=== PATIENT | female | born 1995 | race Hispanic/Latino ===

== ENCOUNTER 2016-08-26 17:15 | Inpatient (IN) | payer MEDICAID ==
[~2016-08-26] VITALS: Ht 127 cm; Wt 65.8 kg
[2016-08-26] MEDS ORDERED: Lactated Ringer's 1,000 ML IV PRN (17:36)
[2016-08-26] MEDS ORDERED: Penicillin G K Inj 5,000,000 UNITS in Dextrose 5% Minibag Plus 100 ML IV ONE (17:40)
[2016-08-26] MEDS ORDERED: Sodium Chloride LOK Flush 10 mL Syringe IVFLUSH PRN (17:40)
[2016-08-26] MEDS ORDERED: Ondansetron 2 mg/mL 2 mL Inj IVPUSH PRN (17:40)
[2016-08-26] MEDS ORDERED: Oxytocin 30 Units/500 mL LR 30 UNITS in IV Premix 1 EACH IV PRN ×2 (17:40→20:10)
[2016-08-26] MEDS ORDERED: Carboprost 250 mCg/mL Inj IM PRN (17:40)
[2016-08-26] MEDS ORDERED: Hemorrhage Kit, Post Partum XX ONE (17:40)
[2016-08-26] MEDS ORDERED: Oxytocin 10 Unit/mL Inj IM PRN (17:40)
[2016-08-26] MEDS ORDERED: Methylergonovine 0.2 mg/mL Inj IM PRN (17:40)
[2016-08-26] MEDS ORDERED: fentaNYL-PF 50 mCg/mL 2 mL Inj IVPUSH PRN (17:40)
[2016-08-26 18:00] LABS: Mean Corpuscular Hemoglobin 29.7 pg (27.0-35.0); Mean Corpuscular Volume 89.8 fL (81-100)
[2016-08-26] MEDS ORDERED: Lactated Ringer's 500 ML IV ONE (18:05)
[2016-08-26] MEDS ORDERED: Atropine 1 mg/10 mL (Code) Syringe IVPUSH PRN (18:05)
[2016-08-26] MEDS ORDERED: EPHEDrine Sulfate 50 mg/mL Inj IVPUSH PRN (18:05)
[2016-08-26] MEDS ORDERED: fentaNYL 2 mCg/mL-Bupiv 0.125% 100 ML EPIDURAL SCH (18:05)
--- NOTE | 2016-08-26 18:09 | PCM.HPANE ---
Patient Data Surgeon Admitting Provider:Janny Whiteside MD Attending Provider:Janny Whiteside MD Primary Care Physician:Janny Whiteside MD Other Provider:[facility] Reason for Visit Term Labor Check Ht/WT & BMI Body Mass Index Allergies Coded Allergies: No Known Drug Allergies (Unverified Allergy, Unknown, 08/25/16) Past Anesthesia History Anesthesia History: Denies:: Abnormal Airway, Difficult Intubation Diabetes History Hx Diabetes?: No Medications Hypertension Medication: No History History of ENT Problems?: No Hx of Heart Problems?: No Hx of Respiratory Problem?: No Hx Neurologic Problems?: No Hx of GI Problems?: No Hx of Problems?: No HX of Peritoneal Dialysis: No Female Hx: Positive for:: Currently Stop/Bang Treated for Sleep Apnea?: No Do You Have a CPAP Machine?: No SASHA Risk Assessment: Low Risk, <3 Yes Risk Assessment Category Category 1A: Patient has history of documented sleep apnea, and HAS NOT received any narcotic, sedative or anesthesia administration during this stay. Category 1B: Patient has history of documented sleep apnea, and HAS received any narcotic , sedative or anesthesia administration during this stay Category 2: Patient has SUSPECTED Obstructive Sleep Apnea, and HAS received any narcotic , sedative or anesthesia administration during this stay. Category 3: Patient has SUSPECTED Obstructive Sleep Apnea and HAS NOT received narcotic, sedative or anesthesia administration during this stay. Category 4: Outpatient in Procedural Areas with known sleep apnea or who screen positive for High Risk via the STOP/BANG questionnaire. Exam Exam General Appearance: Alert, Oriented X3, Cooperative, No Acute Distress HEENT/AIRWAY: MP 2 Lungs: Clear to Auscultation, Normal Air Movement Heart: Exam Unremarkable, Regular Rate/Rhythm, No Murmurs/Rubs/Gallops Meds/Labs/Diagnostics Labs Test 08/26/16 17:35 White Blood Count 10.8th/mm3 (3.8-10.1) Red Blood Count 4.21mil/mm3 (3.90-5.20) Hemoglobin 12.5g/dL (12.0-15.6) Hematocrit 37.8% (35.0-46.0) Mean Corpuscular Volume 89.8fL (81-100) Mean Corpuscular Hemoglobin 29.7pg (27.0-35.0) Mean Corpuscular Hemoglobin Concent 33.1% (32.0-37.0) Red Cell Distribution Width 13.6% (12.3-15.4) Platelet Count 138bil/L (150-400) Plan Impression Patient chart reviewed, patient interviewed and anesthestic plan with risks, benefits, and alternatives discussed, and informed consent obtained. ASA Physical Status: ASA1 Normal Healthy Anesthetic Plan: Epidural Bene/Risks/Altern/Consents: Yes HP Complete Prior to Induction: Yes Catrachito Puente MD Aug 26, 2016 18:09
[2016-08-26] MEDS: Lactated Ringer's 1,000 ML IV SCH (20:01)
[2016-08-26] MEDS: Penicillin G K Inj 3,000,000 UNITS in IV Premix 1 EACH IV SCH (21:44)
--- NOTE | 2016-08-27 04:41 | PCM.HPOB ---
Subjective Date of Service: Aug 26, 2016 Referring Provider: Admitting Physician: Janny Whiteside MD Primary Care Physician: Janny Whiteside MD Attending Physician: Janny Whiteside MD Chief Complaint term labor History of Present History of Present Illness pt, 20 y/o , was admitted for active labor this PM on 08/26/16, at 39 wk 3 d gestational age; she was dilated to 5 cm at the time of admission; GBS was positive; normal labs and care otherwise; MYKE=08/30/16 by LMP, consistent with a 7 wk u/s. OB History: (1), Para (0) Obstetrical Complications: None Past Medical History Obstetrical History: Medical History: no major medical history Surgical History: no major surgical history Hx Tobacco Use: No Hx Alcohol Use: No Hx Substance Use: No Past Family History Living Arrangement: with Family Genetic Screening/Counseling Genetic Screening/Counseling: Negative Review of Systems ROS contraction pain, negative otherwise Allergy Coded Allergies: No Known Drug Allergies (Unverified Allergy, Unknown, 08/25/16) Exam Constitutional: Well-developed HEENT: Atraumatic, PERRLA Lungs: Clear to Auscultation Heart: Exam Unremarkable, Regular Rate/Rhythm, Normal S1, Normal S2, No Murmurs /Rubs/Gallops Abdomen: Gravid Extremities: Pulses Palpable x4 Neurological/Psychiatric: Alert, Oriented X3, Cooperative, No Acute Distress Labs/Diagnostics Maternal Blood Type: O Hx Rho(D) Immune Globulin: No Group B Strep Results: Positive Rubella: Immune OB Intrapartum Assessment/Plan Assessment 20 years old, at 39 wk 3 day gestational age by LMP, consistent with a 7 wk u/s; GBS positive, received 2 doses of penicillin prior to delivery. Anticipate vaginal delivery. Janny Whiteside MD Aug 27, 2016 04:41
[2016-08-27] MEDS ORDERED: Lactated Ringer's 1,000 ML IV SCH (04:52)
[2016-08-27] MEDS ORDERED: Carboprost 250 mCg/mL Inj IM PRN (04:55)
[2016-08-27] MEDS ORDERED: Methylergonovine 0.2 mg/mL Inj IM PRN (04:55)
[2016-08-27] MEDS ORDERED: LANOlin HPA 7 Gm Ointment TOPICAL PRN (04:55)
[2016-08-27] MEDS ORDERED: Benzocaine (Dermoplast) 20% 60 Gm Spray TOPICAL PRN (04:55)
[2016-08-27] MEDS ORDERED: Oxytocin 10 Unit/mL Inj IM PRN (04:55)
[2016-08-27] MEDS ORDERED: HYDROcodone-APAP 5-325 mg Tablet PO PRN (04:55)
[2016-08-27] MEDS ORDERED: Hemorrhage Kit, Post Partum XX ONE (04:55)
[2016-08-27] MEDS ORDERED: Witch Hazel-Glycerin Pads TOPICAL PRN (04:55)
--- NOTE | 2016-08-27 05:24 | OP ---
[address] [address] OPERATIVE REPORT PATIENT: NICHOLE NEAL : 1995 MR#: [id number] ADMIT: 08/26/2016 JOB ID: [id number] DATE OF SURGERY: PREOPERATIVE DIAGNOSIS(ES): 1. A 39 plus weeks intrauterine in active labor. 2. GBS positive status. POSTOPERATIVE DIAGNOSIS(ES): 1. A 39 plus weeks intrauterine in active labor. 2. GBS positive status. PROCEDURE PERFORMED: 1. Vacuum assisted vaginal delivery. 2. Manual extraction of placenta. 3. Second-degree midline perineal laceration repair and episiotomy repair. 4. Right mediolateral episiotomy. SURGEON: Sparkle Waldrop MD. LIP OF SHANK CUTTER: Janny Whiteside MD, who was the patient's primary care provider and who was necessary for assistance during completion of the perineal repair, and had been pushing with the patient prior to my consultation. ANESTHESIA: Epidural and local anesthetic. ESTIMATED BLOOD LOSS: 400 cc. FLUID REPLACEMENT: Crystalloid in labor. FINDINGS: Liveborn male infant, spontaneous cry and spontaneous movement of all four extremities. Liveborn male infant born on August 27, 2016, at 03:33 hours, weighing 8 pounds, 2 ounces, with Apgars of 8 at one minute and 9 at five minutes. COMPLICATIONS: None apparent. INDICATIONS: This is a 20-year-old, G1, P0 female who presented at 39 plus weeks gestational age with EDC of August 30, 2016, dated by seven week ultrasound, for regular uterine contractions. She was noted to be 5 cm dilated and was admitted in active labor. Her was otherwise uncomplicated. Her care was with the [facility] doctors. She was admitted and an epidural was placed per her request. Pitocin was started per protocol and she progressed to complete on the evening of August 26. After pushing inadequately for approximately five hours, TRACTOR MECHANIC was consulted for evaluation and consideration of operative vaginal delivery versus section. At the time of my evaluation, the patient was noted to be in a +3 station with moderate amount of caput, but good descent with pushing. After discussing with the patient risks, benefits and alternatives, the decision was made to proceed with a vacuum assisted vaginal delivery. PROCEDURE: The patient was placed in dorsal lithotomy position. She was prepped and draped in usual sterile fashion. She had been pushing for several hours prior to delivery. With spontaneous pushing she would bring the 's vertex down to 3 to 4+ positioning, but had been pushing for five hours and did have a moderate amount of caput present. Given the station trial of a vacuum delivery was discussed and accepted by the patient. The Kiwi vacuum was placed and pressure increased to the green zone, at which point the patient pushed through one contraction and there was noted to be a pop-off of the vacuum. The following contraction the same process was again tried and she was noted to have a pop-off during this one, however, she was noted to be at +4 to +5 positioning of the vertex and so a third attempt at vacuum placement was done after a right mediolateral 2 cm episiotomy was made to help facilitate appropriate delivery. She pushed again and on the third try with the vacuum the infant's vertex delivered without difficulty, at which point the suction was released. The anterior shoulder delivered easily, followed by the posterior shoulder, and the remainder of the infant was easily delivered. After 60 second cord clamping delay the cord was then clamped and cut. The was placed to the mother's abdomen where nursing personnel and the service delivery manager were in attendance. Cord blood was obtained. Pitocin was started per protocol for active management of the placenta, however, after 35 minutes of gentle traction on the placenta without delivery, manual extraction of placenta was completed, and the placenta was noted to have a marginal cord insertion in an area that appeared to be adhesed to the uterine wall. Bimanual exam removed further placental remnants until no more placenta was identified within the uterine cavity. Examination of the vaginal vault showed a second-degree midline perineal laceration with extension to the left vaginal vault, as well as the right mediolateral episiotomy. The perineal laceration was repaired with 3-0 Vicryl in the usual running fashion. A deeper suture was placed in the left vaginal side wall. The mediolateral episiotomy was repaired with 4-0 Vicryl in a subcutaneous fashion and a [id number] stitch was placed in the right vaginal vault along the hymenal ring where there was noted to be a small hymenal ring tear. The patient tolerated this procedure well. Recovered in labor and delivery with her . All sponge, needle, and instrument counts were correct. [facility]
[2016-08-27] MEDS: Lactated Ringer's 1,000 ML IV SCH (17:46)
[2016-08-28 07:01] LABS: Mean Corpuscular Hemoglobin 29.4 pg (27.0-35.0); Mean Corpuscular Volume 90.6 fL (81-100)
--- NOTE | 2016-08-28 08:25 | PCM.DIOB ---
Obstetrical Disch Instruction Date of Service: Aug 28, 2016 Dates of Hospitalization Date of Hospital Admission Aug 26, 2016 at 17:33 Providers Admitting Physician: Janny Whiteside MD Primary Care Physician: Janny Whiteside MD Attending Physician: Janny Whiteside MD Discharge Diagnosis Problems: (1) Vacuum extraction, delivered, current hospitalization Status: Acute ICD Code: O66.5 (2) Anemia, Status: Acute ICD Code: O90.81 (3) Thrombocytopenia Status: Acute ICD Code: D69.6 Diet Discharge Diet: No restrictions Activity Discharge Activity-General: Pelvic Rest for 6 weeks, Balance rest and activity , Activity as pain allows, Activity as energy allows Dressing and Incisional Care Hygiene: May shower, Perineal care, Sitz bath, Dermoplast spray, Witch Claudia pads, Ice Additional Instructions Discharge Instructions ibuprofen, PNVs, DSS, iron all sent electronically to patient's outpatient pharmacy via outpatient electronic record Follow Up Plan Follow-up Provider (F9): Janny Whiteside MD Follow-up appointment: Weeks (6) Call your provider for: Fever or Chills, Shortness of breath, Heavy vaginal bleeding, Epigastric pain, Excessive constipation, Vaginal discomfort, Red painful breasts (swollen, painful leg) Damien Fuller MD Aug 28, 2016 08:25
[2016-08-28] MEDS: Penicillin G K Inj 3,000,000 UNITS in IV Premix 1 EACH IV SCH (08:30)
[2016-08-28 10:15] VITALS: BP 106/55; PULSE 74
--- NOTE | 2016-08-31 18:37 | DIS ---
[address] [address] DISCHARGE SUMMARY PATIENT: NICHOLE NEAL : 1995 MR#: [id number] ADMIT: 08/26/2016 JOB ID: [id number] DIS: 08/28/2016 ADMIT DIAGNOSES: 1. 1, para 0 at term, spontaneous labor. 2. Group B strep positive. DISCHARGE DIAGNOSES: 1. 1, now para 1, status post vacuum-assisted vaginal delivery, also manual extraction of placenta. 2. Status post repair of second-degree midline perineal laceration and right medial lateral episiotomy. 3. Anemia, . 4. Thrombocytopenia. CONSULTATIONS: Sparkle Waldrop MD, obstetrics. HOSPITAL COURSE: For details of admission, delivery, please see notes by Dr. Janny Whiteside and Dr. Sparkle Waldrop, respectively. Briefly, the patient spontaneous labor, had prolonged 2nd stage with epidural in place. With vacuum assistance and medial lateral episiotomy, was able to deliver 8 pound 2 ounce male . stay was without complications. She was ambulating, taking p.o. well with normal bowel and bladder function. Pain was well controlled. She was just starting to breast feed on the day of discharge, so she was actually discharged to boarder status with the continuing for another 12-14 hours in the hospital with her prior to discharge. Her lochia was normal. No headache, no edema, no abdominal pain, no visual symptoms. OBJECTIVE: Vital signs are stable. She was afebrile, she had normal pressures. No acute distress. Pleasant, cooperative. Cardiovascular: Regular rate and rhythm. S1, S2. No murmurs, gallops, or rubs. Chest: Clear to auscultation bilaterally. No crackles, rhonchi, or wheezes. Abdomen is soft, nontender. Uterine fundus is midline, firm, three fingerbreadths above the umbilicus. Nontender. Lower extremities are without edema. DISCHARGE LABS: labs show white count 13.5, hematocrit 28.0, platelets 99. ASSESSMENT AND PLAN: Patient status post vacuum-assisted vaginal delivery with manual extraction of placenta, episiotomy and perineal laceration repair, doing well without any signs or symptoms of infection. She does also have incidental finding of thrombocytopenia, though has had no blood pressure elevations or other symptoms to suggest that this is anything other than gestational thrombocytopenia. DISCHARGE INSTRUCTIONS: Patient is discharged to boarder status and then will be discharged home with . She is to follow up with the [facility] in six weeks, though we will be seeing her with her starting within a couple of days after discharge. Ibuprofen, iron, vitamins and docusate are all faxed electronically to outpatient pharmacy by provider. Reviewed usual complications of peripartum, how to manage those as well as how to access care if they occur. BILL
--- NOTE | 2016-09-01 14:50 | PATH ---
SURGICAL PATHOLOGY Attending Physician:Sparkle Waldrop, CASE STATUS: Signed Out PATIENT NAME: NICHOLE NEAL PID: [id number] : 1995 DATE COLLECTED:08/27/2016 15:50 SPECIMEN: Placenta CLINICAL HISTORY: PLACENTA, 39+ WEEKS FINAL DIAGNOSIS: Placenta (467 grams): Vila placenta with acute chorioamnionitis. Small infarct (1.2 cm). Focal intervillous hemorrhage. ICD10 O41.1, O43.8 GROSS DESCRIPTION: The specimen is received in formalin, labeled with the patient's name and "placenta". It consists of an ovoid placenta with attached umbilical cord and membranes. The membranes are complete and inserted marginally. The membranes are opaque with slight meconium staining. The umbilical cord is inserted marginally. It measures 33 cm in length and averages 1.4 cm in diameter. The external surface is escobedo-white and the cut surface shows three vessels. Trimmed weight of the placenta is 467 grams, and the disc measures 21.0 x 14.0 x 2.5 cm. The surface is pink-blue with slight meconium staining. The maternal surface is complete. Sectioning reveals beefy, spongy red parenchyma. There is one escobedo-white, laminated lesion located 4.5 cm from the margin, which measures 1.5 x 1.3 x 1.2 cm, and one escobedo-white lesion located 1.5 cm from the margin measuring 1.2 x 1.1 x 1.0 cm. [place]er sections are submitted sa follows: A-membrane rolls; B-umbilical cord; T-tibp-hmztejxgi parenchyma; D-laminated lesion; E-nonlaminated lesion. (JOSH:[id number]) MICRO DESCRIPTION: Please see diagnosis. ICD-9 CODES: CPT CODES: 1: 97472 Electronically Signed Out Lucero Bone MD [facility] [address], [place] [address] Technical component performed at [facility], [address], [place], [address]
== END 2016-08-28 13:05 | disposition home or self-care (01) | DRG 767 ==
LOC: EDBD → EDSEX → FBCO 17:15 → FBC 17:33
PROVIDERS: ADMIT Family Medicine; ATTEND Family Medicine
PROC: 10D07Z6 Extraction of Products of Conception, Vacuum, Via Natural or Artificial Opening (ICD-10-PCS; principal; 2016-08-27)
PROC: 10D17ZZ Extraction of Products of Conception, Retained, Via Natural or Artificial Opening (ICD-10-PCS; 2016-08-27)
PROC: 0KQM0ZZ Repair Perineum Muscle, Open Approach (ICD-10-PCS; 2016-08-27)
PROC: 0W8NXZZ Division of Female Perineum, External Approach (ICD-10-PCS; 2016-08-27)
DX: O70.1 Second degree perineal laceration during delivery (principal); Z37.0 Single live birth; O99.824 Streptococcus B carrier state complicating childbirth; Z3A.39 39 weeks gestation of pregnancy; O73.0 Retained placenta without hemorrhage